=== PATIENT | female | born 1975 | race Caucasian/White ===

== ENCOUNTER 2016-11-23 13:39 | Emergency (ER) | payer MEDICAID ==
--- NOTE | ~2016-11-23 | ER ---
PATIENT'S NAME: OTTO SAENZ [facility] AGE: 41 Y [address] ROOM: [place] [address] LOCATION: [facility] ADMIT DATE: 11/23/2016 ER/Outpatient Report DISCHARGE DATE: 11/23/2016 FAMILY PHYSICIAN: Moises Harvey MD ATTENDING PHYSICIAN: Valeriy Butcher Time of Arrival: 1408 hours. Time of Evaluation: 1420 hours. CHIEF COMPLAINT: Fall in the shower. HISTORY OF PRESENT ILLNESS: The patient states approximately 30 minutes prior to arrival; she was in a shower; was turning the water off; slipped and fell; has head pain, neck pain, and back pain now as a result of that. She denies being dizzy or lightheaded prior to that. She states she was slightly dazed after the episode. Denies any change in her vision. States she feels a lot of pressure in her head. Feels like she needs to sleep. Also having neck pain with movement and mid-to- lower back pain. CURRENT MEDICATIONS: On her chart and reviewed by me. ALLERGIES: ON HER CHART AND REVIEWED BY ME ALSO. PAST MEDICAL HISTORY: Fatigue, fibromyalgia, diverticulitis, and depression. PAST SURGERIES: Colonoscopy. Last menstrual period in October 2016. SOCIAL HISTORY: She does smoke 2 packs per day and has for the last 28 years. Denies use of drugs or alcohol. REVIEW OF SYSTEMS: All negative other than those mentioned in the HPI. PHYSICAL EXAMINATION: VITAL SIGNS: She weighs 110.7 kg, blood pressure is 145/90, pulse is 79, respirations 16, temperature is 98.2 tympanic, and O2 saturation is 97% on room air. Tyree Coma Scale is 15. HEENT: Pupils are equal and reactive to light. Extraocular movement is PATIENT'S NAME: OTTO SAENZ [facility] AGE: 41 Y [address] ROOM: [place] [address] LOCATION: [facility] ADMIT DATE: 11/23/2016 ER/Outpatient Report DISCHARGE DATE: 11/23/2016 FAMILY PHYSICIAN: Moises Harvey MD ATTENDING PHYSICIAN: Valeriy Butcher intact. TMs are clear. Nasal is clear. Oropharynx is clear. NECK: Supple. No lymphadenopathy. LUNGS: Lung sounds are clear throughout. HEART: Regular rate and rhythm. ABDOMEN: Soft and nondistended. Bowel sounds are present. NEUROLOGIC: She has strong hand grasps. Good sensation to all extremities. EMERGENCY DEPARTMENT COURSE: CT scans were completed. Radiologist reports no acute abnormality. The patient was given [place] 5/325 x2 tablets. IMPRESSION: Muscle spasms and back pain due to fall. PLAN: Home. Rest. Ice to the sore areas. Prescription was written for [place] to take as needed for pain at night. If symptoms persist or worsen, she should follow up with her primary provider in 2-3 days. She verbalized understanding. KATE CHAMPAGNE APRN FOR MD NATE BAUTISTA/kristy /[id number] d: 11/24/16 0007 t: 12/04/16 1741, OUTPATIENT REPORT
== END 2016-11-23 16:20 | disposition disaster alternative care site (69) ==
LOC: GACC 13:39
DX: M62.830 Muscle spasm of back (principal); F32.9 Major depressive disorder, single episode, unspecified; M79.7 Fibromyalgia; F17.210 Nicotine dependence, cigarettes, uncomplicated; Z87.19 Personal history of other diseases of the digestive system; Z88.5 Allergy status to narcotic agent; Z79.899 Other long term (current) drug therapy; W18.2XXA Fall in (into) shower or empty bathtub, initial encounter

== ENCOUNTER → 2017-02-05 | Outpatient (CLI) | payer MEDICAID | END | disposition disaster alternative care site (69) | LOC: GRAD 01-30 15:30 | DX: E04.1 Nontoxic single thyroid nodule (principal); J98.4 Other disorders of lung; K76.9 Liver disease, unspecified; R10.2 Pelvic and perineal pain ==